=== PATIENT | male | born 1955 | race Caucasian/White ===

== ENCOUNTER 2024-07-09 05:24 | Observation (INO) ==
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
[2024-07-09] MEDS: LR 15ML/HR IV SCH (05:55)
[2024-07-09] MEDS ORDERED: ATROPINE SULFATE 0.1 MG/ML 10ML SYR IV PRN (06:42)
[2024-07-09] MEDS ORDERED: PROMETHAZINE HCL 6.25 MG in SODIUM CHLORIDE 0.9% 50 ML IV PRN (06:43)
[2024-07-09] MEDS ORDERED: MIDAZOLAM HCL 1 MG/ML 2ML VIAL ONE (06:50)
[2024-07-09] MEDS ORDERED: fentaNYL citrate PF 100 MCG/2 ML VIAL ONE (06:50)
--- NOTE | 2024-07-09 06:56 | History & Physical Bridge Note ---
Date of Service July 09, 2024 History & Physical Bridge Note I have examined the patient, reviewed the History & Physical and in the interval since the performance of the History & Physical I have noted the following changes of clinical significance: no changes noted
[2024-07-09] MEDS: CIPROFLOXACIN / D5W 400 MG/200 ML BAG IV SCH ×2 (07:05→18:07)
[2024-07-09] MEDS ORDERED: LIDOCAINE 2% 2 ML VIAL/AMP(20MG/ML) INFIL ONE (07:27)
[2024-07-09] MEDS ORDERED: ONDANSETRON INJ 2 MG/ML 2 ML VIAL ONE (07:27)
[2024-07-09] MEDS ORDERED: PHENYLEPHRINE 100MCG/ML 10ML SYR IV ONE (07:27)
[2024-07-09] MEDS ORDERED: PROPOFOL IV EMULSION 10 MG/ML 20 ML VIAL IV ONE (07:27)
[2024-07-09] MEDS ORDERED: DEXAMETHASONE SOD INJ 4 MG/ML VIAL ONE (07:27)
[2024-07-09] MEDS ORDERED: ePHEDrine sulfate 50 MG/5 ML SYR ONE (08:16)
--- NOTE | 2024-07-09 08:38 | Operative Report ---
PG Post Operative Report Pre & Post Diagnosis Operation Date: 07/09/24 07:00 Pre-Op Diagnosis: Benign Prostatic Hyperplasia with Lower Urinary Tract Symptoms Post-Op Diagnosis: Benign Prostatic Hyperplasia with Lower Urinary Tract Symptoms I identified the patient and participated in the time-out.: Yes Procedure Operation Date: 07/09/24 07:00 Actual Procedures p Transurethral Resection of Prostate(Not Applicable) - Jared Mccain MD s Cystolithalopaxy(Not Applicable) - Jared Mccain MD Surgeon Jared Mccain MD Building Architectural Designer none Estimated Blood Loss 5 Findings Consistent with Post-Op Diagnosis Specimens 1. prostate chips for routine pathology 2. bladder calculi for chemical analysis Description of Procedure The patient was identified in the preoperative holding area, appropriate informed consents were reviewed and completed and the patient was transferred to the operative suite. Upon arrival, appropriate antibiotics and anesthesia were administered and the patient was placed in dorsal lithotomy position and prepped and draped in sterile fashion. We in the case I passed a 27 [place] resectoscope with 30 degree lens and visual timber treating tank operator. Inspection revealed a healthy-appearing urethra without strictures. He has an enlarged prostate with substantial lateral lobe obstruction, intravesical intrusion and an intravesical median lobe. Visualization of the full bladder was somewhat limited because of the substantial intravesical component of the prostate, however I was able to navigate around the lateral aspect of this median lobe and identified to large bladder calculieach of these was in excess of 2 cm. I was able to identify ureteral orifices and then safely incise the bladder neck at 5 and 7:00. Utilizing a loop electrode I resected the main intravesical median lobe. I then was able to gradually work my way around the bladder neck to try to treat the intravesical portion of the remainder of the prostate. After clearing the bladder neck I progressed through the left lateral lobe followed by the right lateral lobe as well as the posterior tissue of the prostate. This drastically improved the appearance of the prostate. There was a substantial amount of tissue which was irrigated out of the bladder. There still was redundant anterior and apical tissue which was trimmed as the final aspect of the resection. I meticulously obtained hemostasis and confirm that all chips and stones have been irrigated out of the bladder. A 22 [place] Warner catheter was inserted and the case was concluded. He was reversed of anesthesia and taken to the recovery room in stable condition for there were no complications. I attest to the content of the Intraoperative Record and any orders documented therein. Any exceptions are noted below.
[2024-07-09] MEDS: fentaNYL citrate PF 100 MCG/2 ML VIAL IV PRN (08:42)
--- NOTE | 2024-07-09 09:28 | Anesthesiology Progress Note ---
Date of Service July 09, 2024 Anesthesia Post Procedure Vital Signs Vital Signs: Temp Pulse Pulse Resp BP Pulse Ox O2 Del Method 07/09/24 09:15 37.0 C 84 15 132/79 96 Room Air 07/09/24 09:05 82 23 138/82 95 Room Air 07/09/24 08:55 72 13 135/80 94 Room Air 07/09/24 08:45 84 12 130/72 99 Oxymask 07/09/24 08:37 36.0 C L 89 13 147/90 H 96 Oxymask 07/09/24 05:55 36.5 C 72 18 124/87 97 Room Air O2 Flow Rate 07/09/24 09:15 07/09/24 09:05 07/09/24 08:55 07/09/24 08:45 4 07/09/24 08:37 4 07/09/24 05:55 Pain Intensity Left Ankle: Pain Intensity: 1 Penis: Pain Intensity: 4 Transfer of Care Handoff Completed per policy Notes Mental Status: alert / awake / arousable Patient Amnestic to Procedure: Yes Nausea / Vomiting: adequately controlled Pain: adequately controlled Airway Patency, RR, SpO2: stable & adequate BP & HR: stable & adequate Hydration State: stable & adequate Anesthetic Complications: no major complications apparent
[2024-07-09] MEDS ORDERED: PHARMACY GLYCEMIC MGMT CONSULT PRN (09:32)
[2024-07-09] MEDS: SODIUM CHLORIDE 0.9% 1,000 ML IV SCH (10:04)
[2024-07-09] MEDS ORDERED: DEXTROSE 50% 50 ML SYRINGE IV PRN (10:15)
[2024-07-09] MEDS ORDERED: GLUCAGON FOR INJ 1 MG VIAL SQ PRN (10:15)
[2024-07-09] MEDS ORDERED: CARBOHYDRATES FOR HYPOGLYCEMIA PO PRN (10:15)
[2024-07-09] MEDS ORDERED: GLUCOSE 10 TAB/TUBE PO PRN (10:15)
[2024-07-09] MEDS ORDERED: GLUCOSE 40% GEL 15 GM TUBE PO PRN (10:15)
[2024-07-09] MEDS: FLUoxetine HCL 10 MG CAP PO SCH (10:34)
[2024-07-09] MEDS: CHOLECALCIFEROL 25 MCG (1000 UNITS) TAB PO SCH (10:34)
[2024-07-09] MEDS: LOSARTAN POTASSIUM 50 MG TAB PO SCH (10:35)
[2024-07-09] MEDS: ROSUVASTATIN CALCIUM 5 MG TAB PO SCH (10:35)
[2024-07-09] MEDS: ACETAMINOPHEN 325 MG TAB PO PRN (10:37)
--- NOTE | 2024-07-09 11:56 | Pharmacy Report ---
Pharmacy Glycemic Short Note 2 - Date of Service July 09, 2024 - Glycemic Short BSG Results (Last 24 hours): 07/09/24 07/09/24 07/09/24 05:44 08:41 11:23 POC Glucose 132 H 134 H 182 H OUTPATIENT ANTIDIABETIC REGIMEN: * Jardiance 25mg po daily * Janumet XR 50-1000mg po q HS HbA1c: none, ordered for 10/12 AM ASSESSMENT: * 68 year old male admitted today for TURP/cystolithalopaxy--postop day #0 * Patient is currently only on oral medication outpatient for glycemic control. Pharmacy has been consulted for glycemic management postop. * Fasting BSG preop was 132mg/dl. Pt did receive iv dexamethasone 4mg this morning and lunch BSG jalen to 182mg/dl. * Lantus 10 units x 1 was ordered to be given at 1200 today. BSGs will continue to be monitored for further basal insulin need. * Weight based Novolog has been ordered with a stress of 2 to start at lunch time today. PLAN FOR INPATIENT GLYCEMIC CONTROL: * Hold outpatient oral diabetes medications * Basal insulin * Lantus 10 units SQ x 1 * Bolus insulin * NovoLog per scale ACHS or Q6hrs while NPO * Goal Range: Low 110 mg/dL - High 140 mg/dL * Correction Factor: 25 mg/dL/unit * Nutritional / Prandial insulin per carb ratio of 1 unit per 8 grams CHO consumed.
[2024-07-09] MEDS: LANTUS PER UNIT CHARGE SC ONE (12:05)
[2024-07-09] MEDS: INSULIN ASPART PER UNIT CHARGE SC SCH (12:05)
[2024-07-09] MEDS: buPROPion SR 100 MG TABCR PO SCH (20:48)
[2024-07-10 07:15] LABS: Hematocrit (blood only) 38.7 % (42.0-52.0); Mean Corpuscular Hemoglobin 30.2 pg (25.0-34.0); Mean Corpuscular Hgb Conc 33.6 g/dL (32.0-36.0); Mean Corpuscular Volume 89.8 fL (80.0-100.0); Platelet Count 178 K/uL (130-400); RDW Coefficient of Variation 12.5 % (11.5-14.5); RDW Standard Deviation 41.2 fL (36.4-46.3); Red Blood Count 4.31 M/uL (4.70-6.10); White Blood Count 12.59 K/ul (4.8-10.8)
[2024-07-10 07:25] LABS: Estimated Average Glucose 171 mg/dl; Hemoglobin A1C 7.6 % (4.5-5.6)
[2024-07-10 07:48] LABS: BUN Creatinine Ratio 26.5 (10-20); Calcium 8.6 mg/dl (8.6-10.3); Creatinine Clr Calc Pharmacy 115.5 ml/min; Potassium 3.8 mmol/L (3.5-5.1)
[2024-07-10] MEDS: LANTUS PER UNIT CHARGE SC SCH (08:50)
--- NOTE | 2024-07-10 10:57 | Urology Progress Note ---
Date of Service July 10, 2024 Assessment & Plan (1) BPH loc w urin obs/LUTS: (2) Bladder calculus: Plan Postop day #1 status post TURP and laser litholapaxy Voiding trial this morning Plan for discharge home after he voids Admission and Anticipated Discharge Date Admission Date: July 09, 2024 Subjective No issues overnight Doing quite well Catheter came out this morningstill awaiting a void but no discomfort Labs all stable Results & Data Vital Signs (Past 12 Hours) Vital Signs Temp Pulse Pulse Resp BP Pulse Ox O2 Del Method 07/10/24 07:33 36.4 C L 61 16 128/72 96 Room Air 07/10/24 03:45 36.9 C 71 18 106/68 97 Room Air 07/09/24 23:33 36.8 C 76 18 99/63 L 96 Room Air PG Care Time/CCT Total # of Minutes Spent Total Time Spent with Patient: Total time spent is greater than 50% in coordination of care (as documented) at patient's floor/unit and/or counseling patient: Coding Level of Care Code None Diagnoses BPH loc w urin obs/LUTS N40.1 Bladder calculus N21.0
[2024-07-10 11:56] VITALS: BP 110/68; PULSE 56; RESP 13; TEMP 98.4; O2SAT 97
--- NOTE | 2024-07-11 16:19 | Discharge Summary ---
Date of Service July 11, 2024 Principal Diagnosis Urinary retention and bladder calculi Discharge Data Allergies Allergy/AdvReac Type Severity Reaction Status Date / Time Sulfa (Sulfonamide Allergy Unknown Hives Verified 07/09/24 05:51 Antibiotics) Procedures Performed Operation Date: 07/09/24 07:00 Actual Procedures p Transurethral Resection of Prostate(Not Applicable) - Jared Mccain MD s Cystolithalopaxy(Not Applicable) - Jared Mccain MD Hospital Course (1) BPH loc w urin obs/LUTS: admitted for TURP details of the procedure as dictated in the prior operative report. In summary, he tolerated the procedure well. No issues post op. Catheter removed on POD #1 and he voided prior to d/c home. No complications or issues prior to discharge. Total Time Total Time Spent Total Time Spent (In Minutes): 20 Discharge Plan Discharge Items Patient Disposition: Home - Self-Care Reason For Visit: BPH Discharge Diagnosis: BPH with bladder calculi Activity: Resume your previous activity Lifting: Gradually increase as tolerated Bathing: No limitations Sexual Activity: When tolerated Exercise/Sports: Gradually increase as tolerated Non-emergency contact: Urologist Call non-emergency contact if: you have any medication questions, your pain is concerning for you, you have a fever and your temperature is above 101.5 Follow-up/Referrals: Willian Irene [Primary Care Provider] - Diet: Regular Addtl Attending Provider Instructions: Please continue your previous diet, take all medications as prescribed and keep follow-ups as scheduled. Please call our office at [phone] with any questions, concerns or need to reschedule appointments for any reason. We are happy to assist you. While catheter is in place, please wash with warm soapy water and a fresh washcloth twice a day with mild bar soap (Dove, Dial, etc.). Your nursing visit appointment to have your catheter removed should already be made, if you have any question regarding this, please call our office. Complete antibiotics as prescribed, if indicated. It is okay to take AZO (available over the counter) as needed for a few days to relieve burning with urination. This may cause your urine or feces to turn an orangish-color. This is expected. The only exception is if you have been prescribed Pyridium (phenazopyridine), this is the same medication and should not take AZO be taken in addition to prescription version. Please do not drive, drink alcohol or operate machinery while taking prescription pain medication. We recommend continuing a stool softener (i.e. Colace) to prevent constipation/straining for at least two weeks after your procedure. Some blood is to be expected in your urine as you heal, you may even see recurrences of blood in your urine for up to 4-6 months after your procedure. Drink plenty of fluids, avoid sexual or strenuous exercise and do not lift >25 pounds until your follow-up. Call [facility] at [phone] promptly if you experience: Fever of 101F or greater Pain thats not controlled with medicine Trouble urinating or inability to urinate Dark, bloody urine for more than 12 hours Pending Studies at Discharge: No Stand-Alone Forms: My [facility] [employer], Smoking Cessation Medications and DC Order Prescriptions: New ciprofloxacin HCl [Cipro] 500 mg tablet 500 mg PO BID Qty: 6 0RF Continued Jardiance 25 mg tablet 25 mg PO QAM losartan 50 mg Tablet 50 mg PO QAM fluoxetine [Prozac] 40 mg Capsule 50 mg PO QAM bupropion HCl 100 mg Tablet 200 mg PO BID multivitamin Capsule 1 cap PO QAM rosuvastatin 5 mg Tablet 5 mg PO QAM cholecalciferol (vitamin D3) [Vitamin D3] 25 mcg (1,000 unit) Tablet 25 mcg PO QAM Janumet XR 50-1,000 mg Tablet, Er Multiphase 24 Hr 1 tab PO HS Gemtesa 75 mg Tablet 75 mg PO PM Discontinued tamsulosin [Flomax] 0.4 mg Capsule 0.4 mg PO BID finasteride 5 mg Tablet 5 mg PO QAM Discharge Orders: Discharge Order (Routine); Ordered 07/10/24 Ordered By: Jared Leroy/Other Patient Handouts: Benign Prostatic Hyperplasia, ED BPH (Enlarged Prostate) Admission Data Admit Date/Time: 07/09/24 08:35 Attending Provider: Jared Mccain Admit Provider: Jared Mccain Primary Care Provider: Willian Irene Other Interventions: Discharge Summary Assessment (RN) Last Done: 07/10/24 11:47 Coding Level of Care Code 90805 OBS Care - Discharge Diagnoses BPH loc w urin obs/LUTS N40.1
== END 2024-07-10 12:45 | disposition home or self-care (01) ==
LOC: 3W 05:24 → ASU 05:24